=== PATIENT | female | born 1995 | race Caucasian/White ===

== ENCOUNTER → 2018-07-05 | Outpatient (CLI) | payer BC ==
--- NOTE | 2018-07-05 15:57 | US ---
EXAMINATION TYPE: US kidneys/renal and bladder DATE OF EXAM: 07/05/2018 COMPARISON: NONE CLINICAL HISTORY: N39.0 Urinary tract infection R31.9 Hematuria. Microscopic hematuria. Frequent UTI 's EXAM MEASUREMENTS: Right Kidney: 10.2 x 4.2 x 4.1 cm Left Kidney: 9.8 x 4.1 x 4.6 cm Right Kidney: Medial anechoic lesion seen at hilum= 1.5 x 1.1 cm. Left Kidney: wnl Bladder: distended, wnl as visualized Bilateral Jets seen There is no evidence for hydronephrosis at this point in time. No nephrolithiasis is seen. No an s are identified. The urinary bladder is anechoic. Bilateral ureteral jets are seen. Suspect simple appearing 1.1 cm cyst centrally in right kidney near hilum but too small to definitive ly characterize. IMPRESSION: No abnormal or suspicious finding is seen to account for patient's symptoms.
== END | disposition home or self-care (01) ==
LOC: RADUSWWP 15:23
PROVIDERS: ATTEND Family Medicine
DX: R31.9 Hematuria, unspecified (principal)
CPT/HCPCS: 76770

== ENCOUNTER → 2018-07-15 | Outpatient (CLI) | payer BC ==
[2018-07-16 11:34] LABS: APTT 41 Sec(s) (<43); Dilute Russell Viper Venom 36 Sec(s) (<44)
== END | disposition home or self-care (01) ==
LOC: LABWHC1 16:14
PROVIDERS: ATTEND Midwife
DX: L93.0 Discoid lupus erythematosus (principal)
CPT/HCPCS: 36415; 85613; 85730; 86038

== ENCOUNTER → 2024-05-28 | Outpatient (CLI) | payer BC ==
--- NOTE | 2024-05-28 10:19 | CT ---
EXAMINATION TYPE: CT brain wo con CT DLP: 1054.70 mGycm, Automated exposure control for dose reduction was used. DATE OF EXAM: 05/28/2024 10:14 AM COMPARISON: None. CLINICAL INDICATION:Female, 29 years old with history of R51.9 HEADACHE, Chronic headaches, felt in f rontal region x 1 month. TECHNIQUE: Brain: Multiple axial CT images of the brain were obtained without IV contrast. . Coronal and sagitta l reformats reviewed. FINDINGS: Brain: Extra-axial spaces: No abnormal extra-axial fluid collections. Ventricular system: Within normal limits Cerebral parenchyma: No acute intraparenchymal hemorrhage or mass effect. The lerma-white junction is well differentiated. Cerebellum: Unremarkable. Mass effect: No evidence of midline shift. Intracranial vasculature: unremarkable Soft tissues: Normal. Calvarium/osseous structures: No depressed skull fracture. Paranasal sinuses and mastoid air cells: The mastoid air cells are clear. Mild mucosal thickening of the ethmoid sinuses bilaterally. Visualized orbits: Orbital contents are intact. IMPRESSION: No acute intracranial process.
== END | disposition home or self-care (01) ==
LOC: RADCTMAIN 09:38
PROVIDERS: ATTEND Family Medicine
DX: R51.9 Headache, unspecified (principal)
CPT/HCPCS: 70450